=== PATIENT | female | born 1965 | race Caucasian/White ===

== ENCOUNTER → 2023-10-29 14:27 | Outpatient (REF) | payer OTHER, SELFPAY | LOC: HWRAD 14:27 | PROVIDERS: ATTENDING PHYSICIAN Internal Medicine | DX: Z00.00 Encounter for general adult medical examination without abnormal findings (principal); Z12.31 Encounter for screening mammogram for malignant neoplasm of breast; Z78.0 Asymptomatic menopausal state | CPT/HCPCS: 77063; 77067; 77080 ==

== ENCOUNTER → 2023-11-01 07:03 | Outpatient (REF) | payer SELFPAY ==
--- NOTE | 2023-11-11 09:51 | OID.L.PAT ---
Pulmonary Nodule Pat Letter
- -
11/11/23
DEBBIE BYRD
[address] [facility]
[place], [place] [address]
Dear DEBBIE,
A pulmonary nodule was seen on an imaging study done by [facility] Radiology. This was reviewed by the [facility] Pulmonary Nodule Advisory Board and the following recommendation was made:
Recommendation: Follow up Chest CT in one year
If you have any questions, please do not hesitate to contact your primary care physician. If you are in need of a Physician, you can go to [email or web address] and click on 'Find a Provider'. Type 'Family Medicine' in the search.
Oncology Nurse Navigator
[facility]
[phone]
--- NOTE | 2023-11-11 09:52 | OID.L.REC ---
Pulmonary Nodule Follow Up
- Recommendation
11/11/23
Pulmonary Nodule Review Recommendations
Your patient, DEBBIE BYRD, had a pulmonary nodule seen on a CT Coronary Calcium Score imaging study done in the [facility] Radiology Department. This was reviewed by the [facility] Pulmonary Nodule Advisory Board and the
following recommendation was made:
Recommendation: Follow up Chest CT in one year
If you have any questions please do not hesitate to contact us.
Sincerely,
Oncology Nurse Navigator
[facility]
[phone]
== END ==
LOC: HWRAD 07:03
PROVIDERS: ATTENDING PHYSICIAN Internal Medicine Interventional Cardiology; FAMILY PHYSICIAN Internal Medicine
DX: I25.10 Atherosclerotic heart disease of native coronary artery without angina pectoris (principal)
CPT/HCPCS: 75571

== ENCOUNTER → 2024-02-10 14:20 | Outpatient (REF) | payer OTHER, SELFPAY | LOC: RAD 14:20 | PROVIDERS: ATTENDING PHYSICIAN Internal Medicine | DX: R91.1 Solitary pulmonary nodule (principal) | CPT/HCPCS: 71260; Q9967 ==

== ENCOUNTER → 2024-04-20 09:53 | Outpatient (REF) | payer OTHER, SELFPAY | LOC: RAD 09:53 | PROVIDERS: ATTENDING PHYSICIAN Nurse Practitioner Adult Health | DX: M79.671 Pain in right foot (principal) | CPT/HCPCS: 73630 ==

== ENCOUNTER 2024-06-19 23:56 | Inpatient (IN) | payer OTHER, SELFPAY ==
[2024-06-19 15:28] VITALS: BP 166/96
[2024-06-19 15:48] LABS: % Basophils 0.5 % (0-2); % Eosinophils 0.1 % (0-6); % Immature Granulocytes 0.6 % (0-0.5); % Lymphocytes 9.8 % (20.5-51.1); % Monocytes 2.4 % (1.7-9.3); % Neutrophils 86.6 % (42.2-75.2); Absolute Basophils 0.1 10^3/uL (0-0.2); Absolute Immature Granulocytes 0.1 10^3/uL (0-0.05); Absolute Lymphocytes 1.3 10^3/uL (1.2-3.4); Absolute Monocytes 0.3 10^3/uL (0.1-0.6); Absolute Neutrophils 11.4 10^3/uL (1.4-6.5); Hematocrit 43.3 % (37.0-47.0); Hemoglobin 15.5 g/dL (12.0-16.0); Mean Corp Hgb Conc. 35.8 g/dL (33.0-37.0); Mean Corpuscular Hgb 29.5 pg (27.0-31.0); Mean Corpuscular Volume 82.3 fL (81.0-99.0); Mean Platelet Volume 9.3 fL (7.4-10.4); Nucleated Red Blood Cells % 0 %; Platelet Count 250 10^3/uL (130-400); Red Blood Cell Count 5.26 10^6/uL (4.20-5.40); Red Cell Dist. Width 12.3 % (11.5-14.5); White Blood Cell Count 13.1 10^3/uL (4.8-10.8)
[2024-06-19 15:59] LABS: ALT (SGPT) 42 U/L (0-35); AST (SGOT) 31 U/L (14-36); Albumin 5.1 g/dl (3.5-5.0); Alkaline Phosphatase 101 U/L (38-126); Blood Urea Nitrogen 16 mg/dl (7-17); Calcium 10.9 mg/dl (8.4-10.2); Carbon Dioxide 19 mmol/L (22-30); Chloride 103 mmol/L (98-107); Glucose 129 mg/dl (70-99); Lipase 100 U/L (23-300); Potassium 4.5 mmol/L (3.5-5.1); Sodium 135 mmol/L (135-145); Total Bilirubin 0.9 mg/dl (0.2-1.3); Total Protein 7.6 g/dl (6.3-8.2); eGFR > 60.00
--- NOTE | 2024-06-19 17:12 | ED.GENMED ---
History of Present Illness
General
Chief Complaint: Abdominal Pain
Time Seen by Provider: 06/19/24 16:48
History of Present Illness
History of Present Illness:
Patient is a 59-year-old woman with history of hyperlipidemia presenting to the emergency department abdominal pain. Patient states that she woke up this morning feeling unwell. She started develop diffuse upper abdominal pain. She then became
nauseous. Shortly after the pain started localizing to her right lower quadrant. It is constant and randomly exacerbates with movement. She does have history of kidney stones but this does not feel like a kidney stone. No prior abdominal
surgeries. No fevers or chills. No vomiting. No diarrhea. No urinary symptoms. She does have history of cysts. No history of ruptured cyst. She does feel slightly dehydrated and has been unable to tolerate p.o.
Past History
Past History
ED Past Medical History: Hypercholesterolemia
ED Past Surgical History: Orthopedic (Right ACL repair, right wrist surgery)
Social History
Tobacco: Non-smoker
Alcohol: Occasional
Personal:
Living: with family
Employment: Employed
Phy Exam
Physical Exam
Physical Exam:
GENERAL: in no acute distress
HEENT: normocephalic, extraocular movements intact, dry oral mucosa
NECK: normal inspection
RESPIRATORY: no respiratory distress, clear to auscultation bilaterally
CARDIOVASCULAR: regular rate and rhythm
ABDOMEN/: soft, non-distended, right lower quadrant tenderness, no rebound or guarding
EXTREMITIES: non-tender, no edema/swelling
NEUROLOGIC: awake and alert, moves all extremities
SKIN: warm
Course
Orders/Labs/Results
Orders:
Orders
06/19/24 15:30
Electrocardiogram (*1) Urgent
Reason for Study: Abdominal Pain
EKG- Treatment ONCE
06/19/24 15:33
Complete Blood Count/With Diff Urgent
Comprehensive Metabolic Panel Urgent
Lipase Urgent
06/19/24 17:05
CT Abd/pelvis W Iv Cont Urgent
Comment:
Reason For Exam: RLQ pain
0.9% Sodium Chloride 1000 ml [Nss] 1,000 ml IV BOLUS
Ketorolac [Toradol] 15 mg IV NOW STA
Ondansetron Injectable [Zofran] 4 mg IV NOW STA
06/19/24 19:24
Piperacillin/Tazo 4.5 Gram [Zosyn] 4.5 gram in 100 ml IV NOW
Abnormal Lab Results
06/19/24
15:33
WBC 13.1 H 10^3/uL
(4.8-10.8)
Abs Immat Gran (auto) 0.1 H 10^3/uL
(0-0.05)
Absolute Neuts (auto) 11.4 H 10^3/uL
(1.4-6.5)
Immature Gran % 0.6 H %
(0-0.5)
Neutrophils % 86.6 H %
(42.2-75.2)
Lymphocytes % 9.8 L %
(20.5-51.1)
Carbon Dioxide 19 L mmol/L
(22-30)
Glucose 129 H mg/dl
(70-99)
Calcium 10.9 H mg/dl
(8.4-10.2)
ALT 42 H U/L
(0-35)
Albumin 5.1 H g/dl
(3.5-5.0)
06/19/24 15:33
06/19/24 15:33
Vital Signs
Initial and Last Documented VS:
Initial Vital Signs
Temp Pulse Resp BP Pulse Ox
98.1 F 94 18 166/96 100
06/19/24 15:28 06/19/24 15:28 06/19/24 15:28 06/19/24 15:28 06/19/24 15:28
Last Documented Vital Signs
Temp Pulse Resp BP Pulse Ox
98.1 F 71 16 138/85 98
06/19/24 15:28 06/19/24 19:18 06/19/24 19:18 06/19/24 19:18 06/19/24 19:18
MDM/Problems Addressed
Differential Diagnosis Includes:
Patient is a 59-year-old woman presenting to the emergency department with 1 day of abdominal pain that is localized to her right lower quadrant. Vitals are unremarkable on exam does show dry oral mucosa and right lower quadrant tenderness to
palpation. Differential is broad but consists of appendicitis versus ovarian pathology versus kidney stone. Could be viral gastroenteritis. History and exam not consistent with aortic pathology or bowel obstruction or perforated viscus. Will
check blood work and obtain CT scan. Will pain control. Will give IV fluids
*Critical Care Note
Total Time (30-74mins, 75-104mins- exclusive of procedures): Not Applicable
Update Note
Update Note:
On reevaluation patient resting comfortably. She states that the Toradol did take the pain away. CT scan does show acute appendicitis without perforation or abscess. Discussed with general surgery. Plan for OR tomorrow morning. Will start IV
antibiotics.
ED Attending Note
-
Portions of this chart may have been created with voice recognition software.� Occasional wrong word or��sound alike� substitutions may have occurred due to the inherent limitations of voice recognition software.
Discharge Plan
Departure
Prescriptions:
No Action
vitamin B complex 1 TAB tablet
1 tab PO DAILY
polyvinyl alcohol-povidon(PF) [Refresh Classic (PF)] 10 DROPS dropperette
2 drops BOTH EYES DAILYPRN PRN (Reason: dry eye)
Lactobac 2-Bifido 1-S. therm [High Potency Probiotic] 1 CAP capsule
1 cap PO DAILY
vitamin D3-vitamin K2 (MK4) [K2 Plus D3] 1 EACH tablet
1 ea PO DAILY
atorvastatin 40 MG tablet
40 mg PO QPM Qty: 30 0RF
sumatriptan succinate 25 MG tablet
25 mg PO PRN PRN (Reason: severe headache attack) Qty: 6 0RF
fluticasone propionate 1 SPRAY spray,suspension
1 spray intranasal DAILY Qty: 1 0RF
Referrals:
Lizzie Abel MD [Family Provider] -
Interventions
Interventions:
*Risk Screen - Suicide Last Done: 06/19/24 17:19
*General Assessment Last Done: 06/19/24 17:19
*Neglect/Abuse Screening Last Done: 06/19/24 17:19
*ED COVID-19 Vaccine History Last Done: 06/19/24 17:19
[facility]-[employer] Assessment Last Done: 06/19/24 17:19
Discharge Date and Time
Print Language: GIBRALTARIAN
[2024-06-19] MEDS: NSS 1000 IV (17:17)
[2024-06-19] MEDS: TORADOL 15 MG IV ×2 (17:17→20:00)
[2024-06-19 17:18] VITALS: BP 161/89
[2024-06-19 19:18] VITALS: BP 138/85
[2024-06-19] MEDS: ZOSYN 100 IV (19:42)
[2024-06-19 22:31] VITALS: BP 115/75
--- NOTE | 2024-06-19 23:02 | HPS.HSE ---
Addendum entered and electronically signed by Abhijeet Bruner MD 06/20/24 08:54:
I saw and examined the patient.
The DIRECTOR RELIGIOUS EDUCATION's note was reviewed and I agree with the note.
Comment:
History, vitals, imaging reviewed. Patient seen and examined.
59 yo F with acute nonperforated appendicitis. Has leukocytosis and RLQ tenderness. CT confirms diagnosis and appendicolith. Recommended laparoscopic appendectomy. RIsks and benefits discussed. Risks covered include but not limited to bleeding,
infection, organ injury, stapleline leak, and conversion to open and she agrees to proceed.
Original Note:
Family Physician
-
Family Physician: Lizzie Abel
Chief Complaint
-
'abdominal pain'
History of Present Illness
59 y/o patient presents to ER with the complain of Abdominal pain, started this morning at 6 AM. Reports pain developed diffuse upper abdominal pain more located towards Right Lower quadrant. Describes pain as 'Constant throbbing' and worsened
around 2 PM, associated with nausea and chills, afebrile, poor appetite. Last BM today, voiding without difficulty. Denies any vomiting episodes, chest pain or shortness of breath. Patient at some food at 8 PM and was able to tolerate it.
Medical History
Past Medical History
Past Medical History: Reports Hypercholesterolemia
Additional Past Medical History:
Migraines, kidney stones
Past Surgical History: Reports Orthopedic
Additional Past Surgical History:
Left knee surgery , Right wrist surgery
Social History
Tobacco: Non-smoker
Alcohol: Occasional
Drug: None
Living: With Family
Family History
Family History: Not pertinent
Allergies / Home Medications
Allergies reflects when Allergies were last updated in [employer].
Home Medications with original date entered in [employer]
Allergy/Medication List:
Allergies
Allergy/AdvReac Type Severity Reaction Status Date / Time
acetaminophen [From Percocet] Allergy Intermediate Itching Verified 11/11/10 07:19
oxycodone HCl [From Percocet] Allergy Intermediate Itching Verified 05/18/20 07:46
Home Medications
No Meds [No Current Medications] 06/19/24
Review of Systems
-
History Source: Patient
A 12 point ROS was completed and negative except as noted: Yes
Constitutional: Reports No Symptoms
EENT: Reports No Symptoms
Respiratory: Reports No Symptoms
Cardiac: Reports No Symptoms
Abdomen/GI: Reports Abdominal Pain and Nausea
: Reports No Symptoms
Musculoskeletal: Reports No Symptoms
Skin: Reports No Symptoms
Neurological: Reports No Symptoms
Endocrine: Reports No Symptoms
Hematologic/Lymphatic: Reports No Symptoms
Psych: Reports No Symptoms
Physical Exam
Vital Signs
Vital Signs
Temp Pulse Resp BP Pulse Ox
98.1 F 84 20 115/75 98
06/19/24 15:28 06/19/24 22:31 06/19/24 22:31 06/19/24 22:31 06/19/24 22:31
Physical Exam
General: Well Developed, Well Nourished, No Apparent Distress and Conversant
HEENT: NormoCephalic, Moist mucous membranes and Atraumatic
Respiratory: Clear and Non Labored Respirations
Cardiac: S1/S2 and Regular Rhythm
Breast: Deferred by me
GI: Soft, Non Distended, Normal Bowel Sounds and Tender (RLQ ); No Organomegaly
Rectal: Deferred by Provider
Genito-urinary: Deferred by me
Musculoskeletal: No Clubbing, No Cyanosis and No Edema
Skin: Warm and Dry
Neuro: Awake, Alert, AO x 3 and Nonfocal/grossly intact
Hematologic/Lymphatic: No Lymphadenopathy
Psych: Calm and Intact Judgment/Insight
Laboratory Results
-
06/19/24 15:33
06/19/24 15:33
Laboratory Results
Total Bilirubin 0.9 mg/dl (0.2-1.3) 06/19/24 15:33
AST 31 U/L (14-36) 06/19/24 15:33
ALT 42 U/L (0-35) H 06/19/24 15:33
Alkaline Phosphatase 101 U/L (38-126) 06/19/24 15:33
Lipase 100 U/L (23-300) 06/19/24 15:33
Data Reviewed
-
CT Scan: Report Reviewed by me
Lab Data: Labs Reviewed by me
Impression/Plan
-
59 y/o patient presents to ER with Abdomen pain
# Abdomen pain likely due to Acute appendicitis with associated appendicolith.
- CT Abdomen/Pelvis: Acute appendicitis with associated appendicolith. No evidence of perforation nor abscess formation. New.
-WBC 13.1
- Continue IV Zosyn
-Continue IV Toradol
-Continue IV Zofran
-NPO MN
-labs in AM
-Admit to Dr. Bruner
Full code
DVT prophylaxis: SCD's.
[2024-06-20] VITALS (17 sets, daily range): BP systolic 96–161; BP diastolic 51–91
[2024-06-20] MEDS: ZOSYN 50 IV ×4 (01:25→20:12)
[2024-06-20] MEDS: TORADOL 15 MG IV (01:26)
[2024-06-20 07:48] LABS: Hematocrit 39.2 % (37.0-47.0); Hemoglobin 13.5 g/dL (12.0-16.0); Mean Corp Hgb Conc. 34.4 g/dL (33.0-37.0); Mean Corpuscular Hgb 28.4 pg (27.0-31.0); Mean Corpuscular Volume 82.5 fL (81.0-99.0); Mean Platelet Volume 9.3 fL (7.4-10.4); Platelet Count 217 10^3/uL (130-400); Red Blood Cell Count 4.75 10^6/uL (4.20-5.40); Red Cell Dist. Width 12.5 % (11.5-14.5); White Blood Cell Count 13.3 10^3/uL (4.8-10.8)
[2024-06-20 08:20] LABS: Blood Urea Nitrogen 16 mg/dl (7-17); Carbon Dioxide 21 mmol/L (22-30); Chloride 103 mmol/L (98-107); Glucose 114 mg/dl (70-99); Potassium 4.3 mmol/L (3.5-5.1); Sodium 140 mmol/L (135-145); eGFR > 60.00
--- NOTE | 2024-06-20 12:19 | W.IMMPOSTOP ---
Surgical Immed Post Op Note
-
Primary Surgeon: Duy Bruner MD
Assisting Surgeon: none
Pre-op Diagnosis: acute appendicitis
Post-op Diagnosis: same
Procedure Performed: laparoscopic appendectomy
Anesthesia Type: general plus local
Specimen / Cultures: appendix
Estimated Blood Loss: 10 cc
Complications: no immediate
Operative Findings: inflamed nonperforated retrocecal appendix
Will resume diet.
Anticipate discharge tomorrow am.
--- NOTE | 2024-06-20 16:10 | CM ---
CM met with pt bedside
P had lap appy today
resides at home with spouse and 3 adult childrwn
2SH with 2STE
Full flight to 2nd floor
Indep at home, no DMEs
No financial insecurities
PCP- Lizzie Abel
Rx- [facility]- spring
Discharge Disposition- home, no needs anticipated
[2024-06-21] MEDS: ZOSYN 50 IV ×2 (01:14→08:29)
[2024-06-21 03:44] VITALS: BP 118/70
[2024-06-21 07:40] VITALS: BP 116/74
[2024-06-21] MEDS: TORADOL 15 MG IV (11:34)
--- NOTE | 2024-06-21 12:32 | W.PN.CRS1 ---
Today's Communication / Plan
-
discharge
Assessment/Plan
-
POD#1 appendectomy
-Vitals normal
-Regular diet
-Stop antibiotics on discharge
-Okay for d/c. All discharge instructions discussed with patient.
Subjective Data
Procedure
06/20- appendectomy
Subjective Data
Date of Service: June 21, 2024
Patient states she is doing well. Her pain is controlled. She has no nausea or vomiting.
Objective Data
-
Vital Signs
Temp Pulse Resp BP Pulse Ox
97.4 F 63 18 116/74 97
06/21/24 07:40 06/21/24 07:40 06/21/24 07:40 06/21/24 07:40 06/21/24 07:40
Intake & Output
06/20/24 06/21/24 06/22/24
06:59 06:59 06:59
Intake Total 120 / 120 1450 / 1450
Output Total 450 / 450
Balance 120 / 120 1000 / 1000
Intake:
Oral fluids 120 / 120 1200 / 1200
IV fluids (Total) 100 / 100
nss 100 / 100
IV piggybacks 150 / 150
Output:
Urine, Voided 450 / 450
Other:
Number of approximated MODERATE 3 2
amounts of urine
Lab Results
06/20/24 06:50
06/20/24 06:50
Physical Exam
-
General: No Acute Distress and AOx3
Abdomen: Soft, Non Distended and Non Tender
Skin: Warm and Dry
Incision: Clear, Dry, Intact
--- NOTE | 2024-06-21 12:41 | W.DS.TRANS ---
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
-
Discharge Instructions:
Discharge Diagnosis/Procedures appectomy
Diet Regular
Activity No strenuous activity
Additional Activity No lifting over 10lbs (gallon of milk)
Driving Restrictions No driving for 1 week
Bathing Restrictions OK to Shower
Wound Care Allow glue to naturally fall off. Do not pick at
incisions.
Instructions: Appendectomy, Laparoscopic Surgery (DC)
Stand-Alone Forms:
Changes to Home Medications: No
Discharge Medications:
DC Medications w/original date entered in [employer]
No Meds [No Current Medications] 06/19/24
Home Medication Changes
Pending Results: Yes
Additional Pending Results:
OR pathology
--- NOTE | 2024-06-21 12:44 | CM ---
CM reviewed chart and noted dc order
Bedside meeting with pt, spouse and dtr
No dc needs noted
Discharge Disposition- home, no needs- family transport
[2024-06-22 21:22] LABS: Hepatitis C Antibody Negative (Negative)
== END 2024-06-21 13:38 | disposition home or self-care (01) | DRG 399 ==
LOC: 4 WEST ACU 23:56
PROVIDERS: Emergency Medicine; Nurse Practitioner Gerontology; ADMITTING PHYSICIAN Surgery; EMERGENCY PHYSICIAN Student in an Organized Health Care Education/Training Program; FAMILY PHYSICIAN Internal Medicine
PROC: 0DTJ4ZZ Resection of Appendix, Percutaneous Endoscopic Approach (ICD-10-PCS; 2024-06-20)
DX: K35.80 Unspecified acute appendicitis (principal); E78.00 Pure hypercholesterolemia, unspecified; G43.909 Migraine, unspecified, not intractable, without status migrainosus; K66.0 Peritoneal adhesions (postprocedural) (postinfection); N20.0 Calculus of kidney
CPT/HCPCS: 88304; 74177; 80048; 80053; 83690; 85025; 85027; 86803; 87070; 93005; 96361; 96365; 96375; 99285; Q9967

== ENCOUNTER 2025-02-22 12:08 | Emergency (ER) | payer OTHER, SELFPAY ==
[2025-02-22 12:12] VITALS: BP 159/105
[2025-02-22 13:20] LABS: % Basophils 0.4 % (0-2); % Eosinophils 2.2 % (0-6); % Immature Granulocytes 0.5 % (0-0.5); % Lymphocytes 29.6 % (20.5-51.1); % Monocytes 6.4 % (1.7-9.3); % Neutrophils 60.9 % (42.2-75.2); Absolute Eosinophils 0.2 10^3/uL (0-0.7); Absolute Lymphocytes 2.3 10^3/uL (1.2-3.4); Absolute Monocytes 0.5 10^3/uL (0.1-0.6); Absolute Neutrophils 4.8 10^3/uL (1.4-6.5); Hematocrit 43.3 % (37.0-47.0); Hemoglobin 14.7 g/dL (12.0-16.0); Mean Corp Hgb Conc. 33.9 g/dL (33.0-37.0); Mean Corpuscular Hgb 28.9 pg (27.0-31.0); Mean Corpuscular Volume 85.1 fL (81.0-99.0); Mean Platelet Volume 9.3 fL (7.4-10.4); Nucleated Red Blood Cells % 0 %; Platelet Count 225 10^3/uL (130-400); Red Blood Cell Count 5.09 10^6/uL (4.20-5.40); Red Cell Dist. Width 12.7 % (11.5-14.5); White Blood Cell Count 7.8 10^3/uL (4.8-10.8)
--- NOTE | 2025-02-22 13:31 | ED.GENMED ---
History of Present Illness
<Pauline Ledesma PA-C - Last Filed: 02/22/25 16:27>
General
Chief Complaint: Skin Problem
Source: patient
Exam Limitations: none
Time Seen by Provider: 02/22/25 12:42
History of Present Illness
History of Present Illness:
60yoF with a history of hyperlipidemia presenting for evaluation of an abdominal rash. Symptoms initially began 2 days ago when she woke up from sleep. She noticed some itching in her abdomen and assumed that she was bitten by a mosquito. Patient
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 She started to notice redness of her abdominal wall and was seen at urgent care yesterday. She was started on a course of doxycycline and took her
third dose this morning. The redness was outlined with a skin marker and she was told to come to the ED if her redness expanded. She noticed the redness was slightly beyond the border today so came to the ED. She also reports feeling that her
abdomen is distended. Rash is itchy with a 'weird type of pain.' She denies any fevers or chills. She did remove a no running from her scalp last week. No prior history of Lyme disease.
Past History
<Pauline Ledesma PA-C - Last Filed: 02/22/25 16:27>
Past History
ED Past Medical History: Hypercholesterolemia
ED Past Surgical History: Orthopedic (Right ACL repair, right wrist surgery)
Social History
Tobacco: Non-smoker
Alcohol: Occasional
Personal:
Living: with family
Employment: Employed
Phy Exam
<Pauline Ledesma PA-C - Last Filed: 02/22/25 16:27>
General Physical Exam
General Presentation: well appearing
General Skin: warm and dry
General Habitus: normal
General Mental: alert
ENT Exam
ENT Exam: normocephalic
Pulmonary Exam
Pulmonary Exam: no respiratory distress
Gastrointestinal Exam
Gastrointestinal Exam: other (Large circular area of redness to the abdominal wall that extends slightly beyond the skin marker border. There appears to be a dark red raised area in the center with slightly clearing peripheral to this. Abdomen soft
without reproducible tenderness. )
Neurological Exam
Neurological Exam: alert
[place] Coma Scale
Eye Opening: Spontaneous
Verbal Response: Oriented
Motor Response: Obeys Commands
GCS Total Score: 15
Skin Exam
Skin Exam: warm/dry
Psychiatric Exam
Psychiatric Exam: normal mood/affect
<Fran Rice PA-C - Last Filed: 02/22/25 16:13>
[place] Coma Scale
GCS Total Score: 15
Course
<Pauline Ledesma PA-C - Last Filed: 02/22/25 16:27>
Orders/Labs/Results
Orders:
Orders
02/22/25 12:58
CT Abd/pelvis W Iv Cont Urgent
Comment:
Reason For Exam: distention, abdominal wall erythema
02/22/25 13:10
Complete Blood Count/With Diff Urgent
Comprehensive Metabolic Panel Urgent
Lactate Level [Lactic Acid] Urgent
Lyme Progressive Urgent
Abnormal Lab Results
02/22/25
13:10
Chloride 109 H mmol/L
(98-107)
Lactic Acid 0.6 L mmol/L
(0.7-2.0)
ALT 36 H U/L
(0-35)
02/22/25 13:10
02/22/25 13:10
Vital Signs
Initial and Last Documented VS:
Initial Vital Signs
Temp Pulse Resp BP Pulse Ox
97.8 F 77 19 159/105 100
02/22/25 12:12 02/22/25 12:12 02/22/25 12:12 02/22/25 12:12 02/22/25 12:12
Last Documented Vital Signs
Temp Pulse Resp BP Pulse Ox
97.8 F 77 19 159/105 99
02/22/25 12:12 02/22/25 12:12 02/22/25 12:12 02/22/25 12:12 02/22/25 16:00
<Fran Rice PA-C - Last Filed: 02/22/25 16:13>
Orders/Labs/Results
Orders:
Orders
02/22/25 12:58
CT Abd/pelvis W Iv Cont Urgent
Comment:
Reason For Exam: distention, abdominal wall erythema
02/22/25 13:10
Complete Blood Count/With Diff Urgent
Comprehensive Metabolic Panel Urgent
Lactate Level [Lactic Acid] Urgent
Lyme Progressive Urgent
Abnormal Lab Results
02/22/25
13:10
Chloride 109 H mmol/L
(98-107)
Lactic Acid 0.6 L mmol/L
(0.7-2.0)
ALT 36 H U/L
(0-35)
02/22/25 13:10
02/22/25 13:10
Vital Signs
Initial and Last Documented VS:
Initial Vital Signs
Temp Pulse Resp BP Pulse Ox
97.8 F 77 19 159/105 100
02/22/25 12:12 02/22/25 12:12 02/22/25 12:12 02/22/25 12:12 02/22/25 12:12
Last Documented Vital Signs
Temp Pulse Resp BP Pulse Ox
97.8 F 77 19 159/105 99
02/22/25 12:12 02/22/25 12:12 02/22/25 12:12 02/22/25 12:12 02/22/25 16:00
<Pauline Ledesma PA-C - Last Filed: 02/22/25 16:27>
MDM/Problems Addressed
Differential Diagnosis Includes:
60yoF here with redness of her abd wall x 2 days. Started on doxy yesterday at urgent care. Has been working outside recently. C/o abd distention. Denies f/c. She is hypertensive with otherwise stable vitals. There is a large area of abdominal wall
erythema on exam with some central clearing. Area is warmth to touch. No significant abdominal tenderness noted. Differential diagnosis includes but is not limited to: erythema migrans, abdominal wall cellulitis, spider bite
Initial ED plan: Check CBC, CMP, lactate, Lyme testing, and CT abdomen.
<Fran Rice PA-C - Last Filed: 02/22/25 16:13>
*Critical Care Note
Total Time (30-74mins, 75-104mins- exclusive of procedures): Not Applicable
<Fran Rice PA-C - Last Filed: 02/22/25 16:13>
Update Note
Update Note:
Assumed care of patient upon signout pending abdominal CT. CT demonstrates fat-containing umbilical hernia with mild stranding to suggest possible incarceration. Labs reviewed without significant finding. There is a Lyme test pending. Patient
has been on doxycycline. Erythema on the skin is not centered over the umbilical hernia. The umbilical hernia is not tender to the exam. I suspect symptoms are more related to the insect bite possible Lyme. She will continue doxycycline. Will
wait for Lyme test to return and extend course of antibiotic if needed
ED Attending Note
<Pauline Ledesma PA-C - Last Filed: 02/22/25 16:27>
-
Portions of this chart may have been created with voice recognition software.� Occasional wrong word or��sound alike� substitutions may have occurred due to the inherent limitations of voice recognition software.
Discharge Plan
Departure
Patient Disposition: Home (Routine Discharge)
Date of Disposition: 02/22/25
Time of Disposition: 16:11
Patient with high blood pressure during this ER visit?: No
Discharge Problem:
Rash
Instructions: Skin Rash (DC)
Prescriptions:
No Action
No Current Medications
0
Referrals:
Lizzie Abel MD [Family Provider, Internal Medicine]
Activity Restrictions/Additional Instructions:
Continue doxycycline. You should receive a call if your Lyme test is positive. Return here for worsening pain fever or other concerning finding. Follow-up with your doctor otherwise
Interventions
Interventions:
*Risk Screen - Suicide Last Done: 02/22/25 12:12
*General Assessment Last Done: 02/22/25 13:16
*Neglect/Abuse Screening Last Done: 02/22/25 12:12
*ED- Fall Risk Assessment Last Done: 02/22/25 13:16
*ED COVID-19 Vaccine History Last Done: 02/22/25 13:16
ED-Skin Assessment Last Done: 02/22/25 13:16
Discharge Date and Time
Print Language: CHINESE
[2025-02-22 13:33] LABS: ALT (SGPT) 36 U/L (0-35); AST (SGOT) 25 U/L (14-36); Albumin 4.7 g/dl (3.5-5.0); Alkaline Phosphatase 112 U/L (38-126); Blood Urea Nitrogen 16 mg/dl (7-17); Calcium 10.2 mg/dl (8.4-10.2); Carbon Dioxide 27 mmol/L (22-30); Chloride 109 mmol/L (98-107); Glucose 99 mg/dl (70-99); Potassium 4.6 mmol/L (3.5-5.1); Sodium 141 mmol/L (135-145); Total Bilirubin 0.6 mg/dl (0.2-1.3); Total Protein 7.3 g/dl (6.3-8.2); eGFR > 60.00
[2025-02-22 13:38] LABS: Lactic Acid 0.6 mmol/L (0.7-2.0)
== END 2025-02-22 17:04 | disposition home or self-care (01) ==
LOC: EMR 12:08
PROVIDERS: Physician Assistant; EMERGENCY PHYSICIAN Emergency Medicine; FAMILY PHYSICIAN Internal Medicine
DX: R21 Rash and other nonspecific skin eruption (principal); R14.0 Abdominal distension (gaseous); L29.9 Pruritus, unspecified; E78.00 Pure hypercholesterolemia, unspecified; K42.9 Umbilical hernia without obstruction or gangrene; Z88.6 Allergy status to analgesic agent; Z88.5 Allergy status to narcotic agent
CPT/HCPCS: 99284; 74177; 80053; 83605; 85025; 86618; Q9967

== ENCOUNTER 2025-08-08 21:07 | Inpatient (IN) | payer OTHER, SELFPAY ==
[2025-08-08 16:47] VITALS: BP 143/93
[2025-08-08 17:17] LABS: Urine Character Clear (Clear)
[2025-08-08 17:19] LABS: Hematocrit 41.1 % (37.0-47.0); Hemoglobin 13.5 g/dL (12.0-16.0); Mean Corp Hgb Conc. 32.8 g/dL (33.0-37.0); Mean Corpuscular Volume 86.9 fL (81.0-99.0); Nucleated Red Blood Cells % 0 %; Platelet Count 221 10^3/uL (130-400); Red Cell Dist. Width 12.6 % (11.5-14.5)
[2025-08-08 17:29] LABS: Urine White Cell 0-2 /HPF (0-5)
[2025-08-08 17:31] LABS: ALT (SGPT) 27 U/L (0-35); AST (SGOT) 21 U/L (14-36); Albumin 4.4 g/dl (3.5-5.0); Alkaline Phosphatase 90 U/L (38-126); Blood Urea Nitrogen 19 mg/dl (7-17); Calcium 10.2 mg/dl (8.4-10.2); Carbon Dioxide 29 mmol/L (22-30); Chloride 104 mmol/L (98-107); Glucose 90 mg/dl (70-99); Lipase 60 U/L (23-300); Potassium 3.8 mmol/L (3.5-5.1); Sodium 135 mmol/L (135-145); Total Protein 7.1 g/dl (6.3-8.2); eGFR > 60.00
--- NOTE | 2025-08-08 18:30 | ED.GENMED ---
History of Present Illness
<Tamanna Haque, SOL[employer] IN[employer]ALLATION [employer]EMAN - Last Filed: 08/09/25 08:20>
General
Chief Complaint: Flank Pain
Source: patient
Exam Limitations: none
Time Seen by Provider: 08/08/25 18:22
Nursing documentation reviewed up to this point in time: agreed with
History of Present Illness
History of Present Illness:
60-year-old female with history of kidney stones presents stating lower abdominal pain that started yesterday morning. The pain was widespread, affecting both her lower abdomen and lower back. She described the pain as severe, feeling as if she was
'delivering a baby' at 1 AM last night. It persisted through the night, causing significant discomfort. By the morning, she felt the pain had somewhat subsided but noted extreme fatigue. Around noon, she experienced chills and a fever of 101.7�F.
The patient also reported changes in bowel movements, with an episode of explosive, loose stools occurring overnight. Currently, she reports a headache and sharp pains in the lower pelvic area, particularly in the vaginal region.
Past History
<Tamanna Haque, SOLAR INSTALLATION FOREMAN - Last Filed: 08/09/25 08:20>
Past History
ED Past Medical History: GERD, Hypercholesterolemia and Other (Kidney stones)
ED Past Surgical History: Appendectomy and Orthopedic (Right ACL repair, right wrist surgery)
Social History
Tobacco: Non-smoker
Alcohol: Occasional
Personal:
Living: with family
Employment: Employed
Review of Systems
<Tamanna Haque, SOLAR INSTALLATION FOREMAN - Last Filed: 08/09/25 08:20>
Review of Systems
Allergies reviewed?: Yes
All Other Systems: ROS reviewed and negative except as documented in HPI and ROS
Phy Exam
<Tamanna Haque, SOL[employer] INSTALLATION FOREMAN - Last Filed: 08/09/25 08:20>
Physical Exam
Physical Exam:
GENERAL: No acute distress. A&Ox3.
CONSTITUTIONAL: Temp 102.2
EYES: clear, conjunctivae normal
ENMT: moist mucus membranes, Pharynx nl
RESPIRATORY: Regular respirations, nonlabored, lungs clear.
CARDIOVASCULAR: Regular rate and rhythm, no murmurs, no rubs.
GI: Soft, tender LLQ and suprapubic areas, normal BS
MUSCULOSKELETAL: Moves with ease. Well perfused.
SKIN: Warm, dry, pink
PSYCH: Normal mood and affect. Well kept, interactive and appropriate
NEUROLOGIC: Awake, alert and oriented. No focal neurological deficits
Sepsis
<Tamanna Haque, [employer] IN[employer]ALLATION FOREMAN - Last Filed: 08/09/25 08:20>
Sepsis Screening
Sepsis Assessment: Sepsis Ruled Out
Sepsis Screen
Sepsis Screen: Sepsis Ruled Out
Date: 08/09/25
Time: 08:19
Course
<Tamanna Haque, [employer] IN[employer]ALLATION FOREMAN - Last Filed: 08/09/25 08:20>
Orders/Labs/Results
Orders:
Orders
08/08/25 Dinner
BRAT
At Your Request: Full Participation
08/08/25 17:07
Complete Blood Count/With Diff Urgent
Comprehensive Metabolic Panel Urgent
Lipase Urgent
Urinalysis Reflex To Culture Urgent
Date Specimen was Collected: 08/08/25
Time Specimen was Collected: 16:51
Urine Microscopic Reflex Cult Urgent
08/08/25 18:29
Acetaminophen [Tylenol] 1,000 mg PO NOW STA
08/08/25 18:39
CT Abd/Pel (IV only)-DH only Urgent
Comment:
Reason For Exam: LLQ pain
08/08/25 20:37
Piperacillin/Tazo 4.5 Gram [Zosyn] 4.5 gram in 100 ml IV NOW
08/08/25 20:54
Admit/Transfer Patient As Directed
Co-Sign Provider:
Level of Care: Inpatient admission
Assign to:: Medical/Surgical
Physician / Group: susan
Diagnosis: diverticulitis
Reason for Hospitalization: diverticulitis
Expected length of stay greater than two midnights?: Yes
ELOS- Estimated Length of Stay in days: 2
I certify the patient meets the requirements for IP care: Yes
08/08/25 20:55
Code Status As Directed
Resuscitation Status: Full Code
PRN Pain Medication Management As Directed
May give lesser potent ordered pain med per pt: Yes
preference::
Protocol:: Medication orders for pain may be administered in a
manner that supports deferring to patient preference
when the pt is:
- Requesting an ordered lesser potent pain medication.
Least to most potent pain medications are defined
as: acetaminophen < NSAID < tramadol < opioids
(morphine, oxycodone, hydromorphone).
- Requesting a lesser dose of the same medication IF
ORDERED.
- Requesting a less intrusive route of administration
if both routes are prescribed by the provider (PO <
IV).
08/08/25 22:02
Acetaminophen [Tylenol] 650 mg PO Q4HPRN PRN
HYDROmorphone [Dilaudid] 0.5 mg IV Q4HPRN PRN
Ondansetron Injectable [Zofran] 4 mg IV Q6HPRN PRN
08/08/25 22:02
Activity As Directed
Activity Level: As Tolerated
Vital Signs As Directed
Frequency: Per unit guidelines
DX Deep Vein Thrombosis Video Routine
08/09/25 02:00
Piperacillin/Tazo 3.375 Gram [Zosyn] 3.375 gram in 50 ml IV Q6H
08/09/25 06:00
Complete Blood Count/With Diff IN AM
Comprehensive Metabolic Panel IN AM
08/09/25 18:00
Enoxaparin Sodium [Lovenox] 40 mg SC QPM
Abnormal Lab Results
08/08/25
17:07
WBC 12.6 H 10^3/uL
(4.8-10.8)
MCHC 32.8 L g/dL
(33.0-37.0)
Absolute Neuts (auto) 9.3 H 10^3/uL
(1.4-6.5)
Absolute Monos (auto) 0.9 H 10^3/uL
(0.1-0.6)
Lymphocytes % 18.1 L %
(20.5-51.1)
BUN 19 H mg/dl
(7-17)
Ur Occult Blood Reflex 1+ A
(Negative)
Urine RBC 7-10 A /HPF
(0-2)
Urine Bacteria (Reflex) Few A
(Negative)
Urine Albumin (Reflex) 1+ A
(Neg - Trace)
08/08/25 17:07
08/08/25 17:07
Vital Signs
Initial and Last Documented VS:
Initial Vital Signs
Temp Pulse Resp BP Pulse Ox
98.6 F 101 20 143/93 99
08/08/25 16:47 08/08/25 16:47 08/08/25 16:47 08/08/25 16:47 08/08/25 16:47
Last Documented Vital Signs
Temp Pulse Resp BP Pulse Ox
99.4 F 83 18 123/73 95
08/09/25 07:30 08/09/25 07:30 08/09/25 07:30 08/09/25 07:30 08/09/25 07:30
Whitlt;Dakota Lara, DO - Last Filed: 08/08/25 20:42>
Orders/Labs/Results
Orders:
Orders
08/08/25 Dinner
BRAT
At Your Request: Full Participation
08/08/25 17:07
Complete Blood Count/With Diff Urgent
Comprehensive Metabolic Panel Urgent
Lipase Urgent
Urinalysis Reflex To Culture Urgent
Date Specimen was Collected: 08/08/25
Time Specimen was Collected: 16:51
Urine Microscopic Reflex Cult Urgent
08/08/25 18:29
Acetaminophen [Tylenol] 1,000 mg PO NOW STA
08/08/25 18:39
CT Abd/Pel (IV only)-DH only Urgent
Comment:
Reason For Exam: LLQ pain
08/08/25 20:37
Piperacillin/Tazo 4.5 Gram [Zosyn] 4.5 gram in 100 ml IV NOW
08/08/25 20:54
Admit/Transfer Patient As Directed
Co-Sign Provider:
Level of Care: Inpatient admission
Assign to:: Medical/Surgical
Physician / Group: susan
Diagnosis: diverticulitis
Reason for Hospitalization: diverticulitis
Expected length of stay greater than two midnights?: Yes
ELOS- Estimated Length of Stay in days: 2
I certify the patient meets the requirements for IP care: Yes
08/08/25 20:55
Code Status As Directed
Resuscitation Status: Full Code
PRN Pain Medication Management As Directed
May give lesser potent ordered pain med per pt: Yes
preference::
Protocol:: Medication orders for pain may be administered in a
manner that supports deferring to patient preference
when the pt is:
- Requesting an ordered lesser potent pain medication.
Least to most potent pain medications are defined
as: acetaminophen < NSAID < tramadol < opioids
(morphine, oxycodone, hydromorphone).
- Requesting a lesser dose of the same medication IF
ORDERED.
- Requesting a less intrusive route of administration
if both routes are prescribed by the provider (PO <
IV).
08/08/25 22:02
Acetaminophen [Tylenol] 650 mg PO Q4HPRN PRN
HYDROmorphone [Dilaudid] 0.5 mg IV Q4HPRN PRN
Ondansetron Injectable [Zofran] 4 mg IV Q6HPRN PRN
08/08/25 22:02
Activity As Directed
Activity Level: As Tolerated
Vital Signs As Directed
Frequency: Per unit guidelines
DX Deep Vein Thrombosis Video Routine
08/09/25 02:00
Piperacillin/Tazo 3.375 Gram [Zosyn] 3.375 gram in 50 ml IV Q6H
08/09/25 06:00
Complete Blood Count/With Diff IN AM
Comprehensive Metabolic Panel IN AM
08/09/25 18:00
Enoxaparin Sodium [Lovenox] 40 mg SC QPM
Abnormal Lab Results
08/08/25
17:07
WBC 12.6 H 10^3/uL
(4.8-10.8)
MCHC 32.8 L g/dL
(33.0-37.0)
Absolute Neuts (auto) 9.3 H 10^3/uL
(1.4-6.5)
Absolute Monos (auto) 0.9 H 10^3/uL
(0.1-0.6)
Lymphocytes % 18.1 L %
(20.5-51.1)
BUN 19 H mg/dl
(7-17)
Ur Occult Blood Reflex 1+ A
(Negative)
Urine RBC 7-10 A /HPF
(0-2)
Urine Bacteria (Reflex) Few A
(Negative)
Urine Albumin (Reflex) 1+ A
(Neg - Trace)
08/08/25 17:07
08/08/25 17:07
Vital Signs
Initial and Last Documented VS:
Initial Vital Signs
Temp Pulse Resp BP Pulse Ox
98.6 F 101 20 143/93 99
08/08/25 16:47 08/08/25 16:47 08/08/25 16:47 08/08/25 16:47 08/08/25 16:47
Last Documented Vital Signs
Temp Pulse Resp BP Pulse Ox
99.4 F 83 18 123/73 95
08/09/25 07:30 08/09/25 07:30 08/09/25 07:30 08/09/25 07:30 08/09/25 07:30
<Tamanna Haque, [employer]ATION [employer] - Last Filed: 08/09/25 08:20>
MDM/Problems Addressed
Differential Diagnosis Includes:
UTI, pyelonephritis, kidney stones, gastroenteritis, diverticulitis
MDM/Problems Addressed:
60-year-old female with history of kidney stones presents stating lower abdominal pain that started yesterday morning. The pain was widespread, affecting both her lower abdomen and lower back. She described the pain as severe, feeling as if she was
'delivering a baby' at 1 AM last night. It persisted through the night, causing significant discomfort. By the morning, she felt the pain had somewhat subsided but noted extreme fatigue. Around noon, she experienced chills and a fever of 101.7�F.
The patient also reported changes in bowel movements, with an episode of explosive, loose stools occurring overnight. Currently, she reports a headache and sharp pains in the lower pelvic area, particularly in the vaginal region.
CBC: WBC 12.6
CMP unremarkable
UA with +1 occult blood, 7-10 RBCs negative nitrates negative leukocytes
Significant left lower quadrant tenderness. CT abdomen pelvis with IV contrast ordered.
8:00 PM:
Case discussed with Dr. Lara who will assume care from this point.
Official CT reading is pending.
<Tamanna Haque, [employer]ALLATION [employer]EM[employer] - Last Filed: 08/09/25 08:20>
*Pulse Oximetry
SaO2: 99
Oxygen Mode of Delivery: Room air
<Dakota Lara DO - Last Filed: 08/08/25 20:42>
*Radiology
Radiology exam reviewed: radiology read reviewed (ct a/p shows sigmoid diverticulitis)
*Pulse Oximetry
Patient hypoxic: no
*Pi/Senior Research Associate Interpretation
Rate: Pi/Senior Research Associate- N/A
*Critical Care Note
Total Time (30-74mins, 75-104mins- exclusive of procedures): Not Applicable
<Dakota Lara DO - Last Filed: 08/08/25 20:42>
Patient Management
Social determinants of health affecting care: Living situation and Strong social support
Discussion with other providers: Hospitalist
Escalation/DeEscalation of care consider admission/obs:
admit indicated
ED Attending Note
<Tamanna Haque [employer]ATION FOREM[employer] - Last Filed: 08/09/25 08:20>
-
Portions of this chart may have been created with voice recognition software.� Occasional wrong word or��sound alike� substitutions may have occurred due to the inherent limitations of voice recognition software.
<Dakota Lara DO - Last Filed: 08/08/25 20:42>
ED Attending Note
Patient seen and examined by attending physician: Yes
ED Attending Note:
I have reviewed and agree with history treatment plan by Poornima Haque DNP. My exam revealed 60-year-old female no acute distress. Pain improved. CT abdomen pelvis shows sigmoid diverticulitis without abscess. IV Zosyn ordered. Admit to
hospitalist.
Discharge Plan
Departure
Patient Disposition: Admit
Date of Disposition: 08/08/25
Time of Disposition: 20:37
Admit to: Med/Surg
Presentation/result/management discussed w/ accepting MD/DO: Hospitalist
Patient with high blood pressure during this ER visit?: No
Condition: Good
Discharge Problem:
Diverticulitis of sigmoid colon
Interventions
Interventions:
*Risk Screen - Suicide Last Done: 08/08/25 16:47
*General Assessment Last Done: 08/08/25 16:47
*Neglect/Abuse Screening Last Done: 08/08/25 16:47
*ED- Fall Risk Assessment Last Done: 08/08/25 19:19
*ED COVID-19 Vaccine History Last Done: 08/08/25 19:19
*ED Influenza Vaccine History Last Done: 08/08/25 19:19
*Nursing Disposition Last Done: 08/08/25 21:28
VH-Okevzs-Cdmhrnpxyc Assessment Last Done: 08/08/25 18:54
ED-Female Genitourinary Assessment Last Done: 08/08/25 18:54
Discharge Date and Time
Discharge Date/Time: 08/08/25 21:50
[2025-08-08] MEDS: TYLENOL 1000 MG PO (18:44)
[2025-08-08 19:18] VITALS: BMI 26.2
[2025-08-08 19:24] VITALS: BP 115/70
[2025-08-08 20:00] VITALS: BP 124/68
[2025-08-08] MEDS: ZOSYN 100 IV (20:45)
--- NOTE | 2025-08-08 20:57 | HPS.HSE ---
Addendum entered and electronically signed by Maurilio Soria MD 08/08/25 20:58:
Correction- IV fluids not given and not needed.
Original Note:
Family Physician
-
Family Physician: Lizzie Abel
Chief Complaint
-
abdominal pain
History of Present Illness
60-year-old female past medical history of nephrolithiasis, GERD, hypercholesteremia, presenting with lower abdominal pain since yesterday. Pain affects her lower abdomen and lower back. Pain is severe and feels like she is delivering a baby.
Pain improved by the morning time but has extreme fatigue. She had chills and fever of 101.7 today. She also had episode of explosive loose stools occurring overnight. She has headache today. She did have sharp pain in the lower pelvic area in
the vaginal region. Had nausea without vomiting.
She denies any pain currently. She is hungry.
She denies smoking alcohol or drugs.
Medical History
Past Medical History
Past Medical History: Reports Other ( nephrolithiasis, GERD, hypercholesteremia)
Past Surgical History: Reports Other (Appendectomy and Orthopedic (Right ACL repair, right wrist surgery))
Social History
Tobacco: Non-smoker
Alcohol: None
Drug: None
Family History
Family History: Not pertinent
Allergies / Home Medications
Allergies reflects when Allergies were last updated in [facility].
Home Medications with original date entered in [facility]
Allergy/Medication List:
Allergies
Allergy/AdvReac Type Severity Reaction Status Date / Time
acetaminophen (From Percocet) Allergy Intermediate Itching Verified 08/08/25 16:50
oxycodone HCl (From Percocet) Allergy Intermediate Itching Verified 08/08/25 16:50
Home Medications
No Meds [No Current Medications] 06/19/24
Review of Systems
-
History Source: Patient
A 12 point ROS was completed and negative except as noted: Yes
Constitutional: Reports No Symptoms
EENT: Reports No Symptoms
Respiratory: Reports No Symptoms
Cardiac: Reports No Symptoms
Abdomen/GI: Reports See HPI
: Reports No Symptoms
Musculoskeletal: Reports No Symptoms
Skin: Reports No Symptoms
Neurological: Reports No Symptoms
Endocrine: Reports No Symptoms
Hematologic/Lymphatic: Reports No Symptoms
Psych: Reports No Symptoms
Physical Exam
Vital Signs
Vital Signs
Temp Pulse Resp BP Pulse Ox
99.3 F 82 14 124/68 100
08/08/25 20:00 08/08/25 20:00 08/08/25 20:00 08/08/25 20:00 08/08/25 20:00
Physical Exam
General: Well Developed, Well Nourished and No Apparent Distress
HEENT: NormoCephalic, Moist mucous membranes and Atraumatic
Respiratory: Clear
Cardiac: S1/S2 and Regular Rhythm; No Murmur or Rub
GI: Soft, Non Tender, Non Distended and Normal Bowel Sounds; No Organomegaly
Rectal: Deferred by Provider
Musculoskeletal: No Clubbing, No Cyanosis and No Edema
Skin: No Rash
Neuro: Nonfocal/grossly intact
Laboratory Results
-
08/08/25 17:07
08/08/25 17:07
Laboratory Results
Total Bilirubin 0.6 mg/dl (0.2-1.3) 08/08/25 17:07
AST 21 U/L (14-36) 08/08/25 17:07
ALT 27 U/L (0-35) 08/08/25 17:07
Alkaline Phosphatase 90 U/L (38-126) 08/08/25 17:07
Lipase 60 U/L (23-300) 08/08/25 17:07
Data Reviewed
-
Lab Data: Labs Reviewed by me
Old Records: Reviewed
Impression/Plan
-
IMPRESSION:
PLAN:
# Mild acute sigmoid diverticulitis
-CT abdomen pelvis shows proximal sigmoid acute diverticulitis
-Leukocytosis 12.6
- IV fluids
- Zosyn
- Tylenol, Zofran, Dilaudid as needed
- No pain currently, BRAT diet, advance as tolerated
History of nephrolithiasis
GERD
Hypercholesterolemia
Full code
DVT prophylaxis-heparin
BRAT diet
[2025-08-08 22:05] VITALS: BP 116/76; BMI 27.0
[2025-08-09] MEDS: ZOSYN 50 IV ×4 (02:27→20:21)
[2025-08-09 07:00] VITALS: BP 123/73
[2025-08-09] MEDS: TYLENOL 650 MG PO ×2 (07:25→16:54)
[2025-08-09 07:30] VITALS: BP 123/73
[2025-08-09 08:33] LABS: Hematocrit 39.2 % (37.0-47.0); Hemoglobin 13.0 g/dL (12.0-16.0); Mean Corp Hgb Conc. 33.2 g/dL (33.0-37.0); Mean Corpuscular Volume 88.1 fL (81.0-99.0); Nucleated Red Blood Cells % 0 %; Platelet Count 219 10^3/uL (130-400); Red Cell Dist. Width 12.7 % (11.5-14.5)
[2025-08-09 10:07] LABS: ALT (SGPT) 23 U/L (0-35); AST (SGOT) 21 U/L (14-36); Albumin 4.1 g/dl (3.5-5.0); Alkaline Phosphatase 97 U/L (38-126); Blood Urea Nitrogen 11 mg/dl (7-17); Calcium 9.8 mg/dl (8.4-10.2); Carbon Dioxide 24 mmol/L (22-30); Chloride 103 mmol/L (98-107); Estimated Creatinine Clearance 81 ml/min; Glucose 133 mg/dl (70-99); Potassium 4.3 mmol/L (3.5-5.1); Sodium 130 mmol/L (135-145); Total Protein 7.0 g/dl (6.3-8.2); eGFR > 60.00
--- NOTE | 2025-08-09 11:20 | W.PN.HOSP.TC ---
Addendum entered and electronically signed by Jed Valdez MD 08/09/25 11:30:
Hyponatremia.
Continue to monitor
Original Note:
Today's Communication/Plan
-
Advance diet to low residual diet.
Continue Zosyn
Monitor CBC and fever curve
Assessment / Plan
Assessment / Plan
Impression:
60-year-old female past medical history of nephrolithiasis, GERD, hypercholesteremia, presenting with lower abdominal pain since yesterday. Pain affects her lower abdomen and lower back. Pain is severe and feels like she is delivering a baby.
Pain improved by the morning time but has extreme fatigue. She had chills and fever of 101.7 today. She also had episode of explosive loose stools occurring overnight. She has headache today. She did have sharp pain in the lower pelvic area in
the vaginal region. Had nausea without vomiting.
CT abdomen/pelvis shows:
Findings suspicious for proximal sigmoid acute diverticulitis.
Small low-attenuation left lobe hepatic lesion too small to characterize, unchanged.
Mild hepatomegaly with probable diffuse fatty liver.
Small fat only containing umbilical hernia.
Started on Zosyn
Assessment/plan:
Acute sigmoid diverticulitis/infection secondary to sigmoid diverticuli
-CT abdomen pelvis shows proximal sigmoid acute diverticulitis
-Leukocytosis 12.6
- IV fluids
- Zosyn
- Tylenol, Zofran, Dilaudid as needed
- Advance diet to low residue
History of nephrolithiasis
GERD
Hypercholesterolemia
CODE STATUS: Full code
DVT prophylaxis: Heparin
Diet: LRD
Family communication: Discussed with family at bedside.
Disposition: Continue Zosyn
Total time spent on today's encounter was 55 minutes which included time spent in counseling the patient/family regarding diagnosis and treatment plan as listed above, goals of care, and symptom management. Case was discussed with nursing staff,
specialists, and care coordinators/case management. All labs and imaging personally reviewed by me. Remainder the time spent in detailed review of previous records, lab data, imaging, and other medical provider documentation.
Anticipated Discharge: Within 24 hours
Subjective/Interval History
-
Date of Service: August 09, 2025
Patient seen and examined at bedside, family at bedside, denies any chest pain or shortness of breath, still with mild abdominal pain, no nausea, no vomiting, no diarrhea or constipation.
Objective Data
-
Labs:
Laboratory Results
08/09/25
08:08
WBC 12.7 H
Hgb 13.0
Hct 39.2
Plt Count 219
Sodium 130 L
Potassium 4.3
Chloride 103
Carbon Dioxide 24
BUN 11
Creatinine 0.7
Glucose 133 H
Calcium 9.8
Total Bilirubin 1.3
AST 21
ALT 23
Alkaline Phosphatase 97
Vital Signs:
Vital Signs
Temp Pulse Resp BP Pulse Ox
99.4 F 83 18 123/73 95
08/09/25 07:30 08/09/25 07:30 08/09/25 07:30 08/09/25 07:30 08/09/25 07:30
I&O
08/08/25 08/09/25 08/10/25
06:59 06:59 06:59
Intake Total 240 / 240
Balance 240 / 240
Physical Exam
-
General: Well Developed, Well Nourished, No Apparent Distress and Comfortable
HEENT: Normocephalic, Atraumatic, Moist Mucous Membranes, No Ptosis, PERRLA and Nose Appears Normal
Respiratory: Clear to Auscultation and Non Labored Respirations
Cardiac: Regular Rhythm and S1/S2
Breast: Deferred by me
GI: Soft, Nondistended, Normal Bowel Sounds and Tender (Mild tenderness)
Genito-urinary: No Costovertebral Tender
Musculoskeletal: No Clubbing, No Cyanosis and No Edema
Skin: Warm
Neuro: Awake, Alert, Oriented, AO x 3 and No Motor Deficits
Psych: Calm
Data Reviewed
-
Diagnostic Radiology: Image personally visualized and interpreted and Report Reviewed by me
CT Scan: Image personally visualized and interpreted and Report Reviewed by me
Ultrasound: Image personally visualized and interpreted and Report Reviewed by me
MRI: Image personally visualized and interpreted and Report Reviewed by me
Medical Tests (Nuc Med, Echo etc): Image personally visualized and interpreted and Report Reviewed by me
Labs: Labs Reviewed by me
Old Records: Reviewed
[2025-08-09 15:30] VITALS: BP 106/74
--- NOTE | 2025-08-09 16:29 | CM ---
Alert awake oriented patient who lives with her Gui in a 2 story home with 4 steps to enter and 12 steps to bed/bathroom. She is independent in activates of daily living.She does drive .Offered VN she declined.
No VN in past . No SNF hx
Pharmacy [facility] [address]
PCP Dr Abel
PLAN Home with no needs
[2025-08-09 18:55] LABS: Hepatitis C Antibody Negative (Negative)
[2025-08-09] MEDS: FLUSH (NSS) 2 FLUSH IV (20:22)
[2025-08-09 23:14] VITALS: BP 109/65
[2025-08-10] MEDS: ZOSYN 50 IV ×3 (02:27→14:37)
[2025-08-10] MEDS: FLUSH (NSS) 2 FLUSH IV (02:28)
[2025-08-10] MEDS: TYLENOL 650 MG PO (02:38)
[2025-08-10 06:38] LABS: Hematocrit 38.5 % (37.0-47.0); Hemoglobin 12.7 g/dL (12.0-16.0); Mean Corp Hgb Conc. 33.0 g/dL (33.0-37.0); Mean Corpuscular Volume 87.7 fL (81.0-99.0); Platelet Count 206 10^3/uL (130-400); Red Cell Dist. Width 12.8 % (11.5-14.5)
[2025-08-10 06:57] LABS: Blood Urea Nitrogen 12 mg/dl (7-17); Calcium 10.0 mg/dl (8.4-10.2); Carbon Dioxide 26 mmol/L (22-30); Chloride 105 mmol/L (98-107); Estimated Creatinine Clearance 71 ml/min; Glucose 104 mg/dl (70-99); Potassium 4.5 mmol/L (3.5-5.1); Sodium 135 mmol/L (135-145); eGFR > 60.00
[2025-08-10 08:51] VITALS: BP 148/83
--- NOTE | 2025-08-10 09:39 | CM ---
CM reviewed chart, patient seen ambulating in room independently.
No needs from CM at this time.
Plan remains home no needs, CM will continue to follow.
Plan; home no needs
--- NOTE | 2025-08-10 13:34 | W.PN.HOSP.TC ---
Today's Communication/Plan
-
Discharge home if ultrasound normal
Assessment / Plan
Assessment / Plan
Impression:
60-year-old female past medical history of nephrolithiasis, GERD, hypercholesteremia, presenting with lower abdominal pain since yesterday. Pain affects her lower abdomen and lower back. Pain is severe and feels like she is delivering a baby.
Pain improved by the morning time but has extreme fatigue. She had chills and fever of 101.7 today. She also had episode of explosive loose stools occurring overnight. She has headache today. She did have sharp pain in the lower pelvic area in
the vaginal region. Had nausea without vomiting.
CT abdomen/pelvis shows:
Findings suspicious for proximal sigmoid acute diverticulitis.
Small low-attenuation left lobe hepatic lesion too small to characterize, unchanged.
Mild hepatomegaly with probable diffuse fatty liver.
Small fat only containing umbilical hernia.
Started on Zosyn
Overall leukocytosis improved and symptoms improved but patient still with lower abdominal pain.
Ultrasound pelvis/transvaginal pending
Assessment/plan:
Acute sigmoid diverticulitis/infection secondary to sigmoid diverticuli
-CT abdomen pelvis shows proximal sigmoid acute diverticulitis
-Leukocytosis 12.6
- IV fluids
- Zosyn
- Tylenol, Zofran, Dilaudid as needed
- Advance diet to low residue
08/10
Overall leukocytosis improved and symptoms improved but patient still with lower abdominal pain.
Ultrasound pelvis/transvaginal pending
If negative to discharge home.
History of nephrolithiasis
GERD
Hypercholesterolemia
CODE STATUS: Full code
DVT prophylaxis: Heparin
Diet: LRD
Family communication: Discussed with family at bedside.
Disposition: Discharge home if ultrasound normal
Total time spent on today's encounter was 55 minutes which included time spent in counseling the patient/family regarding diagnosis and treatment plan as listed above, goals of care, and symptom management. Case was discussed with nursing staff,
specialists, and care coordinators/case management. All labs and imaging personally reviewed by me. Remainder the time spent in detailed review of previous records, lab data, imaging, and other medical provider documentation.
Anticipated Discharge: Today
Subjective/Interval History
-
Date of Service: August 10, 2025
Patient seen and examined at bedside, denies any chest pain or shortness of breath, still with central lower abdominal pain, no nausea, no vomiting, no diarrhea or constipation.
Objective Data
-
Labs:
Laboratory Results
08/10/25
05:44
WBC 10.8
Hgb 12.7
Hct 38.5
Plt Count 206
Sodium 135
Potassium 4.5
Chloride 105
Carbon Dioxide 26
BUN 12
Creatinine 0.8
Glucose 104 H
Calcium 10.0
Vital Signs:
Vital Signs
Temp Pulse Resp BP Pulse Ox
98.1 F 81 18 148/83 96
08/10/25 08:51 08/10/25 08:51 08/10/25 08:51 08/10/25 08:51 08/10/25 08:51
I&O
08/09/25 08/10/25 08/11/25
06:59 06:59 06:59
Intake Total 240 / 240 600 / 600
Balance 240 / 240 600 / 600
Physical Exam
-
General: Well Developed, Well Nourished, No Apparent Distress and Comfortable
HEENT: Normocephalic, Atraumatic, Moist Mucous Membranes, No Ptosis, PERRLA and Nose Appears Normal
Respiratory: Clear to Auscultation and Non Labored Respirations
Cardiac: Regular Rhythm and S1/S2
Breast: Deferred by me
GI: Soft, Nondistended, Normal Bowel Sounds and Tender (Mild tenderness)
Genito-urinary: No Costovertebral Tender
Musculoskeletal: No Clubbing, No Cyanosis and No Edema
Skin: Warm
Neuro: Awake, Alert, Oriented, AO x 3 and No Motor Deficits
Psych: Calm
[2025-08-10 15:00] VITALS: BP 157/98
--- NOTE | 2025-08-10 15:25 | W.DCSUMMARY ---
Discharge Summary
Discharge Data
Date of Admission: 08/08/25
Date of Discharge: 08/10/25
Total time spent discharging patient (in min): 40
-
Pending Results: No
Hospital Course
Hospital course
60-year-old female past medical history of nephrolithiasis, GERD, hypercholesteremia, presenting with lower abdominal pain since yesterday. Pain affects her lower abdomen and lower back. Pain is severe and feels like she is delivering a baby.
Pain improved by the morning time but has extreme fatigue. She had chills and fever of 101.7 today. She also had episode of explosive loose stools occurring overnight. She has headache today. She did have sharp pain in the lower pelvic area in
the vaginal region. Had nausea without vomiting.
CT abdomen/pelvis shows:
Findings suspicious for proximal sigmoid acute diverticulitis.
Small low-attenuation left lobe hepatic lesion too small to characterize, unchanged.
Mild hepatomegaly with probable diffuse fatty liver.
Small fat only containing umbilical hernia.
Started on Zosyn
Overall leukocytosis improved and symptoms improved but patient still with lower abdominal pain.
Ultrasound pelvis/transvaginal pending
During hospitalization patient was treated from the following
Acute sigmoid diverticulitis/infection secondary to sigmoid diverticuli
-CT abdomen pelvis shows proximal sigmoid acute diverticulitis
-Leukocytosis 12.6
- IV fluids
- Zosyn
- Tylenol, Zofran, Dilaudid as needed
- Advance diet to low residue
08/10
Overall leukocytosis improved and symptoms improved but patient still with lower abdominal pain.
Ultrasound pelvis/transvaginal pending
If negative to discharge home.
History of nephrolithiasis
GERD
Hypercholesterolemia
CODE STATUS: Full code
DVT prophylaxis: Heparin
Diet: LRD
Family communication: Discussed with family at bedside.
Disposition: Discharge home if ultrasound normal
Total time spent on today's encounter was 40 minutes which included time spent in counseling the patient/family regarding diagnosis and treatment plan as listed above, goals of care, and symptom management. Case was discussed with nursing staff,
specialists, and care coordinators/case management. All labs and imaging personally reviewed by me. Remainder the time spent in detailed review of previous records, lab data, imaging, and other medical provider documentation.
Anticipated Discharge: Today
Discharge Plan
-
Patient Disposition: Home (Routine Discharge)
Discharge Diagnosis/Procedures: Acute sigmoid diverticulitis
Diet: As tolerated and Low Fiber
Additional Diets: Low fiber diet for now then regular as tolerated
Referrals:
Lizzie Abel MD [Family Provider, Internal Medicine]
Feli Meyers DO [Active, Gastroenterology] - in one to two months
Additional Discharge Medication Instructions: Needs colonoscopy 6-8 weeks
Prescriptions:
New
amoxicillin-pot clavulanate 875-125 mg tablet
1 tab PO BID Qty: 10 0RF
Discharge Date and Time
Print Language: SPANISH
== END 2025-08-10 18:14 | disposition home or self-care (01) | DRG 392 ==
LOC: 4 EAST ACU 21:07
PROVIDERS: ADMITTING PHYSICIAN Hospitalist; ATTENDING PHYSICIAN General Practice; EMERGENCY PHYSICIAN Emergency Medicine; FAMILY PHYSICIAN Internal Medicine
DX: K57.32 Diverticulitis of large intestine without perforation or abscess without bleeding (principal); E87.1 Hypo-osmolality and hyponatremia; K21.9 Gastro-esophageal reflux disease without esophagitis; E78.00 Pure hypercholesterolemia, unspecified; K42.9 Umbilical hernia without obstruction or gangrene; K76.0 Fatty (change of) liver, not elsewhere classified
CPT/HCPCS: 74177; 76830; 76856; 80048; 80053; 81003; 81015; 83690; 85025; 85027; 86803; 87070; 96365; 99285; Q9967